=== PATIENT | female | born 1990 | race Caucasian/White ===

== ENCOUNTER 2017-04-08 21:23 | Emergency (ER) | payer MEDICAID ==
[2017-04-08 22:47] LABS: RBC URINE 1 /hpf (0-3); URINE BILIRUBIN NEGATIVE (NEGATIVE); URINE BLOOD 2+ (NEGATIVE); URINE COLOR Yellow (YELLOW); URINE GLUCOSE (UA) NORMAL (Normal); URINE KETONE NEGATIVE (NEGATIVE); URINE LEUKOCYTE ESTERASE TRACE Leu/uL (Negative); URINE PROTEIN NEGATIVE (NEGATIVE); URINE UROBILINOGEN NORMAL mg/dL (0.2-1.0); WBC URINE 2 /hpf (0-5)
[2017-04-08] MEDS ORDERED: Sodium Chloride 0.9% 1,000 ML IV ONE (22:51)
[2017-04-08 23:13] LABS: BASO # 0.1 K/uL (0.0-0.2); EOS # 0.2 K/uL (0.0-0.7); EOS % 1.4 % (0.0-4.0); LYMPH # 4.3 K/uL (1.0-4.3); LYMPH % 39.2 % (20.0-40.0); MEAN CELL VOLUME 90.3 fL (81.0-99.0); MEAN CORPUSCULAR HGB CONC 33.2 g/dL (33.0-37.0); MONO # 0.5 K/uL (0.0-0.8); MONO % 4.7 % (0.0-10.0); NRBC % 0.1 % (0.0-2.0); RED CELL DISTRIBUTION WIDTH 13.2 % (11.5-14.5)
[2017-04-08 23:20] LABS: CHLORIDE 100 mmol/L (98-107)
[2017-04-08 23:21] LABS: SODIUM 136 mmol/L (132-148)
[2017-04-08 23:23] LABS: GFR AFRICAN-AMERICAN > 60
[2017-04-08 23:24] LABS: ALB/GLOB RATIO 1.4 (1.0-2.1); ALKALINE PHOSPHATASE 58 U/L (38-126); ALT/SGPT 15 U/L (9-52); AST/SGOT 19 U/L (14-36); BILIRUBIN,TOTAL 0.5 mg/dL (0.2-1.3); BLOOD UREA NITROGEN 19 mg/dL (7-17); CARBON DIOXIDE 25 mmol/L (22-30); GLUCOSE,RANDOM 79 mg/dL (65-105)
[2017-04-08 23:25] LABS: CALCIUM 7.9 mg/dl (8.6-10.4)
[2017-04-08] MEDS ORDERED: Sodium Chloride 0.9% 1,000 ML ONE (23:30)
--- NOTE | 2017-04-09 00:17 | C.PDOC ---
History Of Present Illness Pt c/o irregular vaginal bleeding an cramping. Time Seen by Provider: 04/08/17 22:21 Chief Complaint (Nursing): Female Genitourinary History Per: Patient Onset/Duration Of Symptoms: Days (about 1 month), Intermittent Episodes Current Symptoms Are (Timing): Still Present Severity: Moderate Location Of Pain/Discomfort: Suprapubic Quality Of Discomfort: Cramping Alleviating Factors: None Additional History Per: Prior Records Abnormal Vaginal Bleeding: Yes Past Medical History Reviewed: Historical Data, Nursing Documentation, Vital Signs Vital Signs: Last Vital Signs Temp 97.3 F L 04/08/17 21:30 Pulse 84 04/08/17 21:30 Resp 14 04/08/17 21:30 BP 110/72 04/08/17 21:30 Pulse Ox 98 04/09/17 00:17 - Medical History PMH: No Chronic Diseases Other Surgeries: IUD - [facility] Procedures MONITORING NOS (04/25/13) Family History: States: Unknown Family Hx - Social History Hx Tobacco Use: No Hx Alcohol Use: Yes Hx Substance Use: No - Immunization History Hx Tetanus Toxoid Vaccination: No Hx Influenza Vaccination: Yes Hx Pneumococcal Vaccination: No Review Of Systems Except As Marked, All Systems Reviewed And Found Negative. Constitutional: Negative for: Fever Cardiovascular: Positive for: Light Headedness. Negative for: Chest Pain Respiratory: Negative for: Shortness of Breath Gastrointestinal: Negative for: Vomiting Genitourinary: Positive for: Vaginal Bleeding, Pelvic Pain. Negative for: Dysuria Musculoskeletal: Negative for: Neck Pain, Back Pain Skin: Negative for: Rash Neurological: Negative for: Weakness, Numbness, Seizures, Altered Mental Status Physical Exam - Physical Exam Appears: Non-toxic, No Acute Distress Skin: Normal Color, Warm, Dry, No Rash Head: Atraumatic, Normacephalic Eye(s): bilateral: Normal Inspection, PERRL, EOMI Neck: Normal ROM, Supple Cardiovascular: Rhythm Regular Respiratory: Normal Breath Sounds, No Accessory Muscle Use Gastrointestinal/Abdominal: Soft, Tenderness (mild suprapubic) Back: No CVA Tenderness Extremity: Normal ROM Neurological/Psych: Oriented x3, Normal Motor, Normal Sensation ED Course And Treatment - Laboratory Results Result Diagrams: 04/08/17 23:07 04/08/17 23:07 Lab Interpretation: No Acute Changes Urine POC: Negative O2 Sat by Pulse Oximetry: 98 Pulse Ox Interpretation: Normal - CT Scan/US Pelvic US Other Rad Studies (CT/US): Read By Radiologist, Radiology Report Reviewed CT/US Interpretation: IMPRESSION: Normal transvaginal pelvic ultrasound with IUD in place Reassessment Condition: Improved Disposition Counseled Patient/Family Regarding: Studies Performed, Diagnosis, Need For Followup, Rx Given - Disposition Referrals: Samy Mathews MD [Staff Provider] - Disposition: HOME/ ROUTINE Disposition Time: 00:41 Condition: IMPROVED Additional Instructions: Follow up with your [facility] Delivery Aide for further evaluation and treatment. Return to the ER if you develop fever, vaginal discharge, vomiting, worsening of symptoms or if you have any other concerns. Prescriptions: Ibuprofen [Motrin Tab] 600 mg PO Q8 PRN #30 tab PRN Reason: Pain, Moderate (4-7) Instructions: Dysfunctional Uterine Bleeding (ED) - Clinical Impression Clinical Impression: Dysfunctional uterine bleeding
--- NOTE | 2017-04-09 00:35 | US ---
EXAM: US Pelvis Complete, Transabdominal CLINICAL HISTORY: 27 years old, female; Pain; Pelvic pain; Additional info: Pain/bleeding. Has iud. LMP 03/16/17 TECHNIQUE: Real-time transabdominal pelvic ultrasound (complete) with image documentation. COMPARISON: There are no prior studies for comparison. FINDINGS: Uterus: Uterus is anteflexed. Uterus measures approximately 8.3 x 3.6 x 4.5 cm. There is shadowing from an IUD in the endometrial canal. Endometrium measures approximate 5 mm in width. Right ovary: Right ovary measures approximate 4.5 x 2 x 3.2 cm. There are multiple follicles Left ovary: Left ovary is not identified Free fluid: No free fluid. Bladder: Bladder is incompletely distended. IMPRESSION: Anteflexed uterus with an IUD; limited evaluation of the ovaries; no free fluid EXAM: US Pelvis, Transvaginal CLINICAL HISTORY: 27 years old, female; Pain; Pelvic pain; Additional info: Pain/bleeding. Has iud. LMP 03/16/17 TECHNIQUE: Real-time transvaginal pelvic ultrasound (complete) with image documentation. Transvaginal imaging was used for better evaluation of the endometrium and adnexa. EXAM DATE/TIME: 04/08/2017 10:52 PM COMPARISON: There are no prior studies for comparison. FINDINGS: Uterus: Uterus measures approximately 8 x 4 x 5.1 cm. Endometrium measures 5.8 mm in width. There is shadowing from an IUD in the endometrial canal. Right ovary: Right ovary measures approximately 4 x 2.5 x 3.3 cm. There are multiple small follicles. There is intraovarian blood flow. Left ovary: Left ovary measures approximately 3.9 x 2.2 x 3.4 cm. There are multiple small follicles. There is intraovarian blood flow. Free fluid: There is no free fluid. Bladder: Bladder is empty IMPRESSION: Normal transvaginal pelvic ultrasound with IUD in place
[2017-04-09 01:03] VITALS: BP 98/63; PULSE 62; RESP 20; TEMP 97.9; O2SAT 99
== END 2017-04-09 01:02 | disposition home or self-care (01) ==
LOC: C.ER 21:23
DX: N93.8 Other specified abnormal uterine and vaginal bleeding (principal)
CPT/HCPCS: 76830; 76856; 80053; 81001; 84703; 85025; 85610; 85730; 96361; 96374; 99284; J1885; J7040